=== PATIENT | male | born 1970 | race Caucasian/White ===

== ENCOUNTER 2016-06-06 16:44 | Inpatient (IN) | payer OTHER ==
[~2016-06-06] VITALS: Ht 195.6 cm; Wt 132.4 kg
--- NOTE | ~2016-06-06 | CNG ---
[facility] [address] [place] [address] CYTO-NONGYN REPORT PROCEDURE Name: TANYAMACY Room #: 416-P ADM IN M.R.#: [id number] Admission: 06/06/16 Date of : 66 Discharge: Report #: [id number] Path Case #: [id number] CYTOPATHOLOGY REPORT COLLECTION DATE: 06/08/2016 RECEIVED DATE: 06/08/2016 SUBMITTING PHYS: OTHER PHYS: Dr. Adnrea Mills CLINICAL HISTORY: Abdominal pain, weakness. SPECIMEN(S) RECEIVED: A.Abdominal fluid * * * * * * * * * * * * FINAL DIAGNOSIS: A. Abdominal fluid: NEGATIVE FOR MALIGNANT CELLS. Paucicellular specimen with few reactive mesothelial cells amongst blood. PATHOLOGIST: Alyssa Bañuelos M.D. REPORT ELECTRONICALLY SIGNED BY: Alyssa Bañuelos M.D. DATE/TIME: 06/09/2016 15:16 * * * * * * * * * * * * GROSS PATHOLOGY: A. Abdominal fluid: The specimen is submitted unfixed, labeled "Macy Martínez". Received by the Cytology Department is 15 mL of ne fluid. One ThinPrep slide and a cell block were prepared. (clt 06.08.2016) MICA PATCHER(S): CHINYERE Connor([facility]) INITIAL CPT CODE(S): A; 31907, 85920 Professional services performed by [facility] at [facility] [address] , [place] [address] Technical services performed by [facility] at [address] [place] [address]., [address], [place] [address]. [facility] [address] [place] [address], [address] [place] [address] PHONE: [phone] [facility] [address] [place] [address] CYTO-NONGYN REPORT PROCEDURE Name: MACY MARTÍNEZ Room #: 416-P ADM IN M.R.#: [id number] Admission: 06/06/16 Date of : 66 Discharge: Report #: [id number] Path Case #: [id number] DIRECTOR: London Ruby M.D. * * * END OF REPORT * * *
--- NOTE | ~2016-06-06 | D ---
[facility] [place] [address] [place] [address] DISCHARGE SUMMARY Name: TANYAMACY SHORT Room #: 416-P [facility].Noel#: [id number] Admission: 06/06/16 Attend Phys: Andrea Mills MD Discharge: 06/11/16 Date of : 66 Report #: [id number] THIS REPORT FOR: //name// CC: Andrea Mills DATE OF SERVICE: 06/11/2016 DATE OF ADMISSION: 06/06/2016 DATE OF DISCHARGE: 06/11/2016 DISCHARGE DIAGNOSES: 1. C. difficile colitis. 2. Abdominal pain secondary to ascites status post paracentesis on 06/07/2016 3. 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 4. Alcohol abuse. 5. Hepatic encephalopathy, now improved. 6. Hypertension, now with some hypotension. 7. History of esophageal varices. 8. Asymptomatic cholelithiasis. 9. Anxiety. CONSULTS: GI, Dr. Islas. Surgery, Dr. Sánchez. PROCEDURES: He had a paracentesis done on 06/07/2016 with 7 liters of fluid removed. His neutrophil count was 17. HOSPITAL COURSE: The patient is a 46-year-old male with a history of heavy alcoholism, alcoholic end-stage liver disease, presented to the ER secondary to abdominal pain. Please see details of the admission dictated by Dr. Lucinda Varma on 06/06/2016. On prior admission, there were some concerns about possible cholecystitis. However, PIPIDA scan done showed filling of the gallbladder; therefore, it was felt that the gallbladder thickening was secondary to cirrhosis. The patient had a CT of abdomen and pelvis that showed moderate splenomegaly consistent with portal hypertension. Cholelithiasis and gallbladder wall thickening, likely secondary to ascites, no evidence of bowel obstruction. As stated, he underwent paracentesis with 7 liters of fluid removed. For details of the hospital course, please see [facility] as he was here for prolonged stay. The patient subsequently also had a C. difficile that was positive and he was treated appropriately for that. The challenging issue is that the patient was on lactulose for elevated ammonia levels, which complicated his C. difficile symptoms as well. His ammonia on admission was 55, at its highest it was 63, but on the day of discharge, it was 39. On the day of discharge, he was adamant about going home because he indicated that he has to care for his elderly father; however his elderly father had come up on his own at one point, but did not appear to be debilitated. There is some concerns that [address] [address] DISCHARGE SUMMARY Name: MACY MARTÍNEZ Room #: 416-P [facility] IN M.R.#: [id number] Admission: 06/06/16 Attend Phys: Andrea Mills MD Discharge: 06/11/16 Date of : 66 Report #: [id number] he might have needed to be discharged for drinking purposes. Regardless he was feeling much better and is cleared for discharge by GI and surgery. DISCHARGE PHYSICAL EXAMINATION: GENERAL: He is awake, alert, answering questions appropriately, in no acute respiratory distress. NECK: Supple. CARDIOVASCULAR: Regular rate and rhythm. No murmurs. LUNGS: Clear to auscultation bilaterally. No crackles or wheezes. ABDOMEN: Soft, mildly distended, no tenderness. EXTREMITIES: No edema. NEUROLOGIC: Nonfocal. DISCHARGE MEDICATIONS: Flagyl 500 q.i.d., spironolactone 100 mg daily, lactulose 20 grams daily, Lasix 20 daily, prednisone taper, OxyIR p.r.n., Trazodone at bedtime p.r.n., Celexa 10 daily, chlordiazepoxide 25 mg at bedtime p.r.n., Valium 5 mg t.i.d. p.r.n., mag oxide 400 mg daily, thiamine 100 mg daily, lisinopril 10 daily, Coreg 6.25 b.i.d., gabapentin 300 b.i.d. DIET: Low sodium diet. ACTIVITY: As tolerated. FOLLOWUP: CBC and CMP in 1 week. Follow up with primary care in 1 week. Follow up with GI in 1 week and to seek immediate medical attention if symptoms worsen or recur or if he has any significant medical concerns. <ELECTRONICALLY SIGNED> By: Poornima Antony MD 08/02/16 1053 [id number] Poornima Antony MD /nt
--- NOTE | ~2016-06-06 | HC ---
[facility] [place] [place] [address] CONSULTATION Name: MACY MARTÍNEZ Room #: 416-P [facility] IN ..#: [id number] Admission: 06/06/16 Attend Phys: Andrea Mills MD Discharge: Date of : 66 Report #: [id number] THIS REPORT FOR: //name// CC: Andrea Mills DATE OF SERVICE: 06/07/2016 ATTENDING PHYSICIAN: Andrea Mills M.D. REASON FOR CONSULTATION: Abdominal pain. HISTORY OF PRESENT ILLNESS: This is a 45-year-old male patient known to our service. He was recently admitted over the Holiday with upper GI bleeding presumably secondary to esophageal varices. The patient has a history of significant alcohol use and cirrhosis as a result. The patient was dismissed on Karie. However, he had been noncompliant with the medications prescribed to him by the gastroenterology service. The patient has had difficulty with abdominal pain, nausea, dyspepsia, fever, chills and increasing abdominal girth, in addition to weakness and lower extremity swelling. He complains of shortness of breath secondary to his increased abdominal girth and weight gain. He has a known history of gallstones. I have been asked to see the patient for further evaluation and treatment. During my interview with him, the patient denies biliary colic symptoms. He has just undergone paracentesis by which 7 liters of fluid was taken off. PAST MEDICAL HISTORY: Significant for portal hypertension with history of alcohol abuse, cirrhosis, esophageal varices status post banding, hypertension, degenerative joint disease and anxiety. PAST SURGICAL HISTORY: Includes esophageal varices banding 6 months ago, bilateral knee operations, L5-S1 back surgery and tonsillectomy. MEDICATIONS: Currently include prednisone, lactulose, Lasix, spironolactone, thiamine, citalopram, lisinopril, carvedilol, Zosyn, magnesium oxide, gabapentin, pantoprazole and p.r.n. medications. ALLERGIES: No known drug allergies. FAMILY HISTORY: Reviewed and noncontributory to this hospitalization. SOCIAL HISTORY: The patient has a history of alcohol abuse, drinking up to a pint of hard alcohol daily near the Holiday. He had quit for the 6 months prior to that. He has a remote smoking history. Denies any use of illicit drugs. REVIEW OF SYSTEMS: [address] [address] CONSULTATION Name: TANYAMACY SHORT Room #: 416-P [facility] IN ..#: [id number] Admission: 06/06/16 Attend Phys: Andrea Mills MD Discharge: Date of : 66 Report #: [id number] As per history of present illness. In addition: GENERAL: The patient reports subjective fever and chills. Denies unintentional weight loss; reports a 20-pound weight gain. HEENT: Denies changes in taste, vision, hearing or smell. RESPIRATORY: Denies asthma or COPD. Had difficulty breathing secondary to the ascites, improved now after having undergone paracentesis. CARDIOVASCULAR: Denies chest pain or palpitations. GASTROINTESTINAL: Reports abdominal pain, greatest in the right upper quadrant as well as in the left upper quadrant. Denies bright red blood per rectum. GENITOURINARY: Denies dysuria, urgency, increased urinary frequency or hematuria. Does report dark, malodorous urine. MUSCULOSKELETAL: Denies myalgia. NEUROLOGIC: Denies headaches, numbness or tingling. PSYCHIATRIC: Denies depression or suicidal ideations, has a history of anxiety. SKIN AND INTEGUMENTARY: Reports jaundice. Denies rashes or significant lesions. HEMATOLOGIC: Denies easy bleeding or bruising. Denies anemia. ENDOCRINE: Denies polydipsia, polyuria heat or cold intolerance. All other review of systems is negative. PHYSICAL EXAMINATION: VITAL SIGNS: Temperature 97.7, blood pressure 100/63, pulse 56 and respirations 18. GENERAL: This is a 45-year-old male patient, in no acute distress. HEENT: Atraumatic and normocephalic with moist mucosal membranes. He has obvious scleral icterus. NECK: Supple. No appreciable lymphadenopathy. Trachea is midline. CHEST: Clear bilaterally. CARDIOVASCULAR: Regular rate and rhythm, S1 and S2. ABDOMEN: Soft but tender to palpation, greatest in the right upper quadrant. He has a negative Singh's sign. No rebound or guarding. No palpable masses. The patient's abdomen is obese. There is a negative fluid wave. There is infraumbilical ecchymosis. GENITOURINARY: Normal external male genitalia. EXTREMITIES: No clubbing or cyanosis with bilateral lower extremity edema. NEUROLOGICAL: Cranial nerves 2-12 grossly intact. PSYCHIATRIC: Normal mood and affect. SKIN AND INTEGUMENTARY: Jaundice is present. No significant lesions or rashes. LABORATORY DATA: CBC shows a white blood cell count of 7.4, hemoglobin 10.2, hematocrit 30.2 and platelets 135. The patient's basic metabolic profile shows a sodium of 138, potassium 3.9, chloride 107, CO2 of 24, BUN 17, creatinine 1.0 and glucose 74. Liver function tests are elevated with a total bilirubin of 5.9. His AST was normal at 36 and ALT normal at 34. Alkaline phosphatase is elevated at 145 and lipase normal at 326. [address] [place] [address] CONSULTATION Name: MACY MARTÍNEZ Room #: 416-P [facility] IN M.R.#: [id number] Admission: 06/06/16 Attend Phys: Andrea Mills MD Discharge: Date of : 66 Report #: [id number] RADIOLOGIC STUDIES: CT of the abdomen and pelvis showed multiple gallstones within a distended gallbladder. The gallbladder wall was prominent, felt to be secondary to the significant amount of ascites seen. The patient also had moderate splenomegaly and portal prominence indicative of portal hypertension. In addition to this, the liver had a nodular appearance and umbilical varices were present. There was no evidence for bowel obstruction, ileus or free air. IMPRESSION AND PLAN: This is a 45-year-old alcoholic male patient with cirrhosis/alcoholic liver disease and elevated liver function tests, with jaundice and who just underwent paracentesis with drainage of 7 liters of fluid. The patient denies biliary colic symptoms. Given his significant liver disease, if surgery or drainage of the gallbladder is necessary, the patient would best be managed by a tertiary medical center with hepatobiliary surgeons (the [facility]). The patient is being established by primary care at [facility]. When his abdominal pain resolves, the patient states that he will be following up at the [facility] and will seek further medical care at that institution for any significant abdominal complaints or issues. He has no acute general surgery issues at this time as he is felt to have asymptomatic cholelithiasis. I sincerely appreciate the opportunity to participate in the care of this patient and will leave further recommendations and orders in the electronic medical record as appropriate. Management of his liver disease is being undertaken by the gastroenterology service. <ELECTRONICALLY SIGNED> By: Ephraim Sánchez MD, FACS 06/09/16 0912 [id number] Ephraim Sánchez MD, FACS /nt
[~2016-06-06 16:44] MED LIST: ACID CONTROL20 MG PO; ALDACTONE25 MG PO; AMBIEN 5 MG TABL5 M1 PO; AMOXICILLIN 50500 M1 PO; ATIVAN1 MG PO; BYSTOLIC 5 MG5 M1 PO; BYSTOLIC 5 MG5 MG PO; BYSTOLIC10 MG; CARVEDILOL12.5 MG PO; CELEXA10 MG; CELEXA10 MG PO; CHLORDIAZEPOXID25 M1 PO; CLONIDINE HCL0.2 M2 PO; CLONIDINE0.1 PO; CORGARD40 M1 PO; DAILY VITE1 EACH PO; DESYREL150 MG; KRISTALOSE10 GM PO; LACTULOSE10 GM/152 PO; LACTULOSE10 GM/153 PO; LISINOPRIL20 MG PO; MAGNESIUM OXID400 MG PO; NAPROSYN500 MG PO; NEURONTIN 300300 M1 PO; PAXIL20 MG PO; PHENERGAN 25 MG25 M1 PO; PREDNISONE 20 M20 M1 PO; PREVACID 15 MG15 M4; PREVACID15 MG PO; PRILOSEC40 MG PO; RESTORIL15 MG PO; TRINATAL ULTRA1 EACH PO; VALIUM5 MG PO; VISINE15 ML OPHTHALMIC; VITAMIN B-1100 M1 PO; VITAMIN B-1100 M2 PO; XIFAXAN550 M1 PO; ZOFRAN ODT4 MG PO; ZOFRAN4 MG PO
[2016-06-06 16:46] VITALS: BP 112/73
[2016-06-06 17:14] LABS: HEMATOCRIT 29.4 % (42.0-52.0); HEMOGLOBIN 9.7 gm/dL (14.0-18.0); MCHC 33.1 % (28.0-37.0); MCV 99.7 fL (80.0-100.0); PLATELET COUNT 170 thou/uL (150-400); RBC 2.95 mil/uL (4.50-6.00); RDW 26.4 % (10.5-14.5); WBC 15.6 thou/uL (4.0-11.0)
[2016-06-06 17:15] LABS: MANUAL DIFF YES
[2016-06-06] MEDS ORDERED: LISINOPRIL10 MG PO (17:23)
[2016-06-06] MEDS ORDERED: CARVEDILOL12.5 MG PO (17:24)
[2016-06-06 17:27] LABS: CALCIUM 8.6 mg/dL (8.5-10.1); CREATININE 0.9 mg/dL (0.6-1.3); POTASSIUM 4.8 mmol/L (3.5-5.1)
[2016-06-06] MEDS ORDERED: NEURONTIN 300300 M1 PO (17:27)
[2016-06-06] MEDS ORDERED: PREDNISONE 10 M10 MG PO (17:30)
[2016-06-06 17:36] LABS: ALBUMIN 1.9 g/dL (3.4-5.0); TOTAL BILIRUBIN 7.2 mg/dL (<0.1-1.0)
[2016-06-06 17:51] LABS: ABSOLUTE NEUTROPHILS 13.6 thou/uL (1.4-8.2); ANISOCYTOSIS 1+; TOTAL CELL COUNT 100
[2016-06-06 19:17] LABS: URINE BILIRUBIN 2+ (Negative); URINE BLOOD NEGATIVE (Negative); URINE COLOR YELLOW; URINE GLUCOSE-RANDOM* NEGATIVE (Negative); URINE KETONES NEGATIVE (Negative); URINE LEUKOCYTES-REFLEX NEGATIVE (Negative); URINE PROTEIN (DIPSTICK) NEGATIVE (Negative)
[2016-06-06 19:19] LABS: ICTOTEST (BILI CONFIRMATORY) Positive (Negative)
[2016-06-06 19:28] LABS: INR 1.6; PROTIME 16.7 Seconds (9.3-11.4)
[2016-06-06 20:14] VITALS: BP 106/56
[2016-06-06 22:00] VITALS: BP 110/71
[2016-06-07 05:30] LABS: HEMATOCRIT 25.6 % (42.0-52.0); HEMOGLOBIN 8.8 gm/dL (14.0-18.0); MCH 33.7 pg (26.0-34.0); MCHC 34.6 % (28.0-37.0); MCV 97.5 fL (80.0-100.0); PLATELET COUNT 123 thou/uL (150-400); RBC 2.62 mil/uL (4.50-6.00); RDW 24.7 % (10.5-14.5); WBC 7.5 thou/uL (4.0-11.0)
[2016-06-07 05:34] LABS: INR 1.6; PROTIME 16.9 Seconds (9.3-11.4)
[2016-06-07 05:43] VITALS: BP 106/69
[2016-06-07 06:04] LABS: MANUAL DIFF YES
[2016-06-07 06:07] LABS: ALBUMIN 1.5 g/dL (3.4-5.0); CALCIUM 8.3 mg/dL (8.5-10.1); MAGNESIUM 1.4 mg/dL (1.8-2.4); TOTAL BILIRUBIN 5.9 mg/dL (<0.1-1.0); TOTAL PROTEIN 5.1 g/dL (6.4-8.2)
[2016-06-07 08:00] VITALS: BP 100/63
[2016-06-07 08:15] LABS: ABSOLUTE NEUTROPHILS 6.5 thou/uL (1.4-8.2); ANISOCYTOSIS 2+; POIKILOCYTOSIS 1+; TOTAL CELL COUNT 100
[2016-06-07 11:34] LABS: HEMATOCRIT 30.2 % (42.0-52.0); HEMOGLOBIN 10.2 gm/dL (14.0-18.0); MCH 33.6 pg (26.0-34.0); MCHC 33.9 % (28.0-37.0); MCV 99.2 fL (80.0-100.0); RBC 3.04 mil/uL (4.50-6.00); WBC 7.4 thou/uL (4.0-11.0)
[2016-06-07 11:48] LABS: CALCIUM 8.7 mg/dL (8.5-10.1); POTASSIUM 3.9 mmol/L (3.5-5.1)
[2016-06-07 16:00] VITALS: BP 100/63
[2016-06-07 18:12] LABS: TOTAL VOLUME 60
[2016-06-07 20:00] VITALS: BP 103/65
[2016-06-08 04:00] VITALS: BP 97/62
[2016-06-08 07:10] LABS: CREATININE 1.2 mg/dL (0.6-1.3); POTASSIUM 3.6 mmol/L (3.5-5.1)
[2016-06-08 07:11] LABS: ALBUMIN 1.4 g/dL (3.4-5.0); CALCIUM 8.4 mg/dL (8.5-10.1); TOTAL BILIRUBIN 5.2 mg/dL (<0.1-1.0); TOTAL PROTEIN 4.8 g/dL (6.4-8.2)
[2016-06-08 07:25] LABS: HEMATOCRIT 28.6 % (42.0-52.0); HEMOGLOBIN 9.8 gm/dL (14.0-18.0); MCH 33.9 pg (26.0-34.0); MCHC 34.2 % (28.0-37.0); MCV 99.1 fL (80.0-100.0); RBC 2.89 mil/uL (4.50-6.00); RDW 25.9 % (10.5-14.5); WBC 5.5 thou/uL (4.0-11.0)
[2016-06-08 08:00] VITALS: BP 98/59
[2016-06-08 12:08] LABS: BF NEUTROPHILS 17 % (0-24); BF NUCLEATED CELLS 88 /mm3 (0-499); BF RBC 11000 /uL (Not Estab.); BODY FLUID ALBUMIN 0.4 g/dL (()); BODY FLUID AMYLASE 14 U/L (()); BODY FLUID GLUCOSE 89 mg/dL (()); BODY FLUID LDH 71 IU/L (()); BODY FLUID PROTEIN 1.1 g/dL (()); CLARITY CD (Clear); COLOR YL (())
[2016-06-08 18:49] VITALS: BP 112/66
[2016-06-09 05:45] LABS: HEMATOCRIT 27.1 % (42.0-52.0); HEMOGLOBIN 9.5 gm/dL (14.0-18.0); MCH 34.2 pg (26.0-34.0); MCV 97.7 fL (80.0-100.0); RBC 2.77 mil/uL (4.50-6.00); RDW 26.2 % (10.5-14.5); WBC 8.4 thou/uL (4.0-11.0)
[2016-06-09 06:09] LABS: CALCIUM 8.2 mg/dL (8.5-10.1); CREATININE 1.2 mg/dL (0.6-1.3); POTASSIUM 3.4 mmol/L (3.5-5.1); TOTAL BILIRUBIN 5.1 mg/dL (<0.1-1.0)
[2016-06-09 06:10] LABS: ALBUMIN 1.5 g/dL (3.4-5.0)
[2016-06-09 09:14] VITALS: BP 110/80
[2016-06-09 17:41] VITALS: BP 120/65
[2016-06-09 20:00] VITALS: BP 97/63
[2016-06-10 04:00] VITALS: BP 109/72
[2016-06-10 06:26] LABS: HEMATOCRIT 26.3 % (42.0-52.0); MCH 33.3 pg (26.0-34.0); MCHC 34.1 % (28.0-37.0); MCV 97.7 fL (80.0-100.0); RBC 2.69 mil/uL (4.50-6.00); RDW 25.5 % (10.5-14.5); WBC 12.5 thou/uL (4.0-11.0)
[2016-06-10 06:41] LABS: ALBUMIN 1.5 g/dL (3.4-5.0); CREATININE 1.1 mg/dL (0.6-1.3); POTASSIUM 3.8 mmol/L (3.5-5.1); TOTAL PROTEIN 5.1 g/dL (6.4-8.2)
[2016-06-10 06:42] LABS: TOTAL BILIRUBIN 4.6 mg/dL (<0.1-1.0)
[2016-06-10 08:00] VITALS: BP 100/59
[2016-06-10 16:16] VITALS: BP 105/61
[2016-06-10 20:25] VITALS: BP 107/69
[2016-06-11 04:05] VITALS: BP 116/74
[2016-06-11 09:46] VITALS: BP 126/80
[2016-06-11 14:12] LABS: HEMATOCRIT 30.3 % (42.0-52.0); HEMOGLOBIN 10.4 gm/dL (14.0-18.0); MCH 33.7 pg (26.0-34.0); MCHC 34.1 % (28.0-37.0); MCV 98.7 fL (80.0-100.0); RBC 3.07 mil/uL (4.50-6.00); RDW 25.9 % (10.5-14.5); WBC 12.7 thou/uL (4.0-11.0)
[2016-06-11 14:28] LABS: INR 1.5; PROTIME 15.1 Seconds (9.3-11.4)
[2016-06-11 14:35] LABS: ALBUMIN 1.8 g/dL (3.4-5.0); CALCIUM 8.6 mg/dL (8.5-10.1); CREATININE 1.2 mg/dL (0.6-1.3); POTASSIUM 4.4 mmol/L (3.5-5.1); TOTAL PROTEIN 5.7 g/dL (6.4-8.2)
[2016-06-11] MEDS ORDERED: FLAGYL500 MG PO (16:18)
[2016-06-11] MEDS ORDERED: SPIRONOLACTONE100 M1 PO (16:18)
[2016-06-11] MEDS ORDERED: LASIX 20 MG TAB20 MG PO (16:18)
[2016-06-11] MEDS ORDERED: LACTULOSE10 GM/153 PO (16:18)
[2016-06-11] MEDS ORDERED: PREDNISONE 10 M10 MG PO (16:18)
[2016-06-11] MEDS ORDERED: OXYCODONE HCL 55 MG PO (16:22)
[2016-06-11 16:44] VITALS: BP 126/80
[2016-07-02] MEDS ORDERED: SPIRONOLACTONE25 M1 PO (10:18)
[2016-07-02] MEDS ORDERED: FLOMAX0.4 MG PO (10:18)
[2016-07-02] MEDS ORDERED: AZITHROMYCIN 2250 MG PO (10:19)
[2016-07-11] MEDS ORDERED: LEVOTHYROXINE0.05 MG PO (16:20)
[2016-07-11] MEDS ORDERED: LACTULOSE10 GM/153 PO (16:20)
[2016-07-11] MEDS ORDERED: ALDACTONE25 MG PO (16:20)
[2016-07-11] MEDS ORDERED: XIFAXAN550 MG PO (16:20)
[2016-07-11] MEDS ORDERED: CELEXA 20 MG TA20 MG PO (16:20)
[2016-07-11] MEDS ORDERED: TRAZODONE HCL50 MG PO (16:20)
[2016-07-11] MEDS ORDERED: VITAMIN B-1100 M2 PO (16:20)
== END 2016-06-11 17:45 | disposition home or self-care (01) | DRG 432 ==
LOC: ER 16:44 → 4N 19:17 → EROBS 19:17 → 4N 20:15
PROVIDERS: Emergency Medicine; Family Medicine; Hospitalist; Nurse Practitioner; Nurse Practitioner Adult Health
PROC: 0W9G30Z Drainage of Peritoneal Cavity with Drainage Device, Percutaneous Approach (ICD-10-PCS; principal; 2016-06-07)
DX: K70.11 Alcoholic hepatitis with ascites (principal); G93.40 Encephalopathy, unspecified; E43 Unspecified severe protein-calorie malnutrition; A04.7 Enterocolitis due to Clostridium difficile; K76.6 Portal hypertension; I85.10 Secondary esophageal varices without bleeding; K86.1 Other chronic pancreatitis; E72.4 Disorders of ornithine metabolism; D62 Acute posthemorrhagic anemia; F41.9 Anxiety disorder, unspecified; I95.9 Hypotension, unspecified; M19.90 Unspecified osteoarthritis, unspecified site; I10 Essential (primary) hypertension; K72.90 Hepatic failure, unspecified without coma; K74.60 Unspecified cirrhosis of liver; D72.829 Elevated white blood cell count, unspecified; F10.10 Alcohol abuse, uncomplicated; K80.20 Calculus of gallbladder without cholecystitis without obstruction; Y90.9 Presence of alcohol in blood, level not specified; R56.9 Unspecified convulsions; Z98.890 Other specified postprocedural states; Z87.891 Personal history of nicotine dependence; Z68.34 Body mass index [BMI] 34.0-34.9, adult
CPT/HCPCS: 10091